=== PATIENT | male | born 1995 ===

== ENCOUNTER 2017-06-30 16:21 | Emergency (ER) | payer MEDICARE, MEDICAID ==
--- NOTE | 2017-06-30 17:52 | UC ---
Throat Pain/Nasal Viraj HPI - HPI Summary HPI Summary: SORE THROAT X 2 DAYS + SWOLLEN GLANDS, RIGHT SIDE EAR PAIN FEVER, CHILLS NO COUGH, NO NASAL CONGESTION - History of Current Complaint Chief Complaint: UCRespiratory Stated Complaint: RIGHT SIDE FACE SWELLING,TROUBLE SWALLOWING Time Seen by Provider: 06/30/17 16:44 Hx Obtained From: Patient Onset/Duration: Gradual Onset, Lasting Days - 2, Still Present Severity: Moderate Cough: None Associated Signs & Symptoms: Positive: Fever. Negative: Sinus Discomfort, Nasal Discharge, Rash - Allergies/Home Medications Allergies/Adverse Reactions: Allergies Allergy/AdvReac Type Severity Reaction Status Date / Time No Known Allergies Allergy Verified 06/30/17 16:31 PMH/Surg Hx/FS Hx/Imm Hx Previously Healthy: Yes - Surgical History Surgical History: None - Family History Known Family History: Negative: Diabetes - Social History Alcohol Use: None Substance Use Type: None Smoking Status (MU): Heavy Every Day Tobacco Smoker Type: Cigarettes Amount Used/How Often: 1/2ppd - Immunization History Most Recent Influenza Vaccination: no Review of Systems Constitutional: Fever, Chills, Fatigue Skin: Negative Eyes: Negative ENT: Sore Throat, Ear Ache Respiratory: Negative Cardiovascular: Negative Is Patient Immunocompromised?: No All Other Systems Reviewed And Are Negative: Yes Physical Exam Triage Information Reviewed: Yes Appearance: Well-Appearing, No Pain Distress, Well-Nourished Vital Signs: Initial Vital Signs Temp 100.7 F 06/30/17 16:25 Pulse 87 06/30/17 16:25 Resp 16 06/30/17 16:25 BP 100/60 06/30/17 16:25 Pulse Ox 98 06/30/17 16:25 Vital Signs Reviewed: Yes Eyes: Positive: Conjunctiva Clear ENT: Positive: Normal ENT inspection, Hearing grossly normal, Pharyngeal erythema, Nasal congestion, TMs normal, Tonsillar exudate - RIGHT SIDE. Negative: Nasal drainage Neck: Positive: Supple, Nontender, No Lymphadenopathy Respiratory: Positive: Chest non-tender, Lungs clear, Normal breath sounds Cardiovascular: Positive: RRR, No Murmur, Pulses Normal Abdominal Exam: Normal Throat Pain/Nasal Course/Dx - Differential Dx/Diagnosis Provider Diagnoses: PHARYNGITIS Discharge - Discharge Plan Condition: Stable Disposition: HOME Prescriptions: Amoxicillin PO (*) [Amoxicillin 875 MG (*)] 875 mg PO BID #20 tab Patient Education Materials: Pharyngitis (ED) Referrals: No Primary Care Phys,NOPCP [Primary Care Provider] - If Needed
== END 2017-06-30 17:56 | disposition home or self-care (01) ==
LOC: UCCORT 16:21
DX: J02.9 Acute pharyngitis, unspecified (principal); F17.210 Nicotine dependence, cigarettes, uncomplicated
CPT/HCPCS: 99202; G0463

== ENCOUNTER 2017-12-15 16:35 | Emergency (ER) | payer MEDICARE, MEDICAID ==
[2017-12-15 16:59] VITALS: BP 113/68
[2017-12-15] MEDS ORDERED: Albuterol HFA INHALER* 8 gm MDI INH ONE (17:42)
--- NOTE | 2017-12-15 17:53 | UC ---
UC General HPI - HPI Summary HPI Summary: PT STATES NOT ABLE TO SLEEP DUE TO A COUGH AND SUBJECTIVE FEVER WITH CHILLS FOR 2 DAYS. HE ADMITS TO WHEEZING AND SOB. HE DOES SMOKE AND HAD HX CHILDHOOD ASTHMA. NO CP. PT ALSO C/O 3 BLISTERS ON HIS PENIS FOR A WEEK THAT ARE NOW SCABBED OVER. HE DENIES HX HERPES AND HAS HAD SAME PARTNER FOR 3 YEARS. NO URETHRAL DISCHARGE, PAIN WITH URINATION OR TESTICULAR PAIN. - History of Current Complaint Hx Obtained From: Patient Pain Intensity: 0 Aggravating: NOTHING Alleviating: NOTHING Associated Signs & Symptoms: Positive: Cough, Fever, SOB, Wheezing. Negative: Dysuria <Breana Dong - Last Filed: 12/15/17 17:53> <Lore Rowland - Last Filed: 12/15/17 19:07> - History of Current Complaint Chief Complaint: UCGeneralIllness Stated Complaint: COUGH,CONGESTION,PERSONAL Time Seen by Provider: 12/15/17 17:29 - Allergy/Home Medications Allergies/Adverse Reactions: Allergies Allergy/AdvReac Type Severity Reaction Status Date / Time No Known Allergies Allergy Verified 12/15/17 16:49 PMH/Surg Hx/FS Hx/Imm Hx Psychological History: Bipolar Disorder, Schizophrenia, Other - ADHD Other Psychological History: adhd - Surgical History Surgical History: None - Family History Known Family History: Negative: Diabetes - Social History Lives: With Family Alcohol Use: None Substance Use Type: None Smoking Status (MU): Heavy Every Day Tobacco Smoker Type: Cigarettes Amount Used/How Often: 1/2ppd Household Exposure Type: Cigarettes - Immunization History Most Recent Influenza Vaccination: no <Breana Dong - Last Filed: 12/15/17 17:53> Review of Systems Constitutional: Fever, Chills Skin: Negative Eyes: Negative ENT: Negative Respiratory: Shortness Of Breath, Cough Cardiovascular: Negative Gastrointestinal: Negative Genitourinary: Ulceration/Lesion Motor: Negative Neurovascular: Negative Musculoskeletal: Negative Neurological: Negative Psychological: Negative Is Patient Immunocompromised?: No All Other Systems Reviewed And Are Negative: Yes <Breana Dong - Last Filed: 12/15/17 17:53> Physical Exam Triage Information Reviewed: Yes Appearance: Well-Appearing Vital Signs: Initial Vital Signs Temp 98.5 F 12/15/17 16:50 Pulse 69 12/15/17 16:50 Resp 16 12/15/17 16:50 BP 113/68 12/15/17 16:50 Pulse Ox 100 12/15/17 16:50 Vital Signs Reviewed: Yes Eye Exam: Normal ENT: Positive: Normal ENT inspection Neck: Positive: Supple, Nontender, No Lymphadenopathy Respiratory: Positive: Lungs clear, Decreased breath sounds Cardiovascular: Positive: RRR, No Murmur Abdomen Description: Positive: Nontender, No Organomegaly, Soft, Other: - : no inguinal adenopathy, testicles down with no swelling or tenderness, canals are patent. no urethral discharge. 12 small scabs on shaft of penis. Bowel Sounds: Positive: Present Neurological: Positive: Alert Psychological: Positive: Age Appropriate Behavior Skin Exam: Normal <Breana Dong - Last Filed: 12/15/17 17:53> Vital Signs: Initial Vital Signs Temp 98.5 F 12/15/17 16:50 Pulse 69 12/15/17 16:50 Resp 16 12/15/17 16:50 BP 113/68 12/15/17 16:50 Pulse Ox 100 12/15/17 16:50 <Lore Rowland - Last Filed: 12/15/17 19:07> Course/Dx - Course Course Of Treatment: I think the cough is bronchospasm. nothing to suggest pneumonia or indication for antibiotic. The spots on pt's penis are concerning for resolving herpes and i will tx presumptively. The site are healing thus nothing there to culture and pt is refusing any blood work to assist with the diagonsis. will refer to N as pt notes new to area. - Differential Dx - Multi-Symptom Provider Diagnoses: Bronchospasm. penile scabs. possible resolving herpes. <Breana Dong - Last Filed: 12/15/17 17:53> Discharge <Breana Dong - Last Filed: 12/15/17 17:53> <Lore Rowland - Last Filed: 12/15/17 19:07> - Discharge Plan Condition: Stable Disposition: HOME Prescriptions: Famciclovir TAB(NF) [Famvir TAB(NF)] 250 mg PO TID 7 Days tab Patient Education Materials: Genital Herpes Simplex (ED), Bronchospasm (ED) Referrals: ARI Rodriguez [Medical Doctor] - As Soon As Possible Additional Instructions: USE THE ALBUTEROL INHALER 2 PUFFS EVERY 6 HOURS Attestation Statement User Type: Provider - I was available for consult. This patient was seen by the COURTNEY. The patient was not presented to, seen by, or examined by me. Gladys <Lore Rowland - Last Filed: 12/15/17 19:07>
== END 2017-12-15 18:05 | disposition home or self-care (01) ==
LOC: UCCORT 16:35
DX: J98.01 Acute bronchospasm (principal); N48.89 Other specified disorders of penis; F31.9 Bipolar disorder, unspecified; F20.9 Schizophrenia, unspecified; F90.9 Attention-deficit hyperactivity disorder, unspecified type; F17.210 Nicotine dependence, cigarettes, uncomplicated
CPT/HCPCS: 99212; A9270-GY; G0463